=== PATIENT | female | born 1960 ===

== ENCOUNTER 2017-10-20 07:56 | Outpatient (CLI) | payer BC | END 2017-10-20 07:57 | disposition home or self-care (01) | LOC: BICMAMMO 07:56 | PROVIDERS: ATTEND Family Medicine | DX: Z12.31 Encounter for screening mammogram for malignant neoplasm of breast (principal) | CPT/HCPCS: 77063; 77067 ==

== ENCOUNTER 2018-10-23 08:12 | Outpatient (CLI) | payer BC ==
--- NOTE | 2018-10-30 13:19 | MMO ---
Bilateral MAMMO Bilat Screen [facility]. CLINICAL HISTORY: Patient is 58 years old and is seen for screening. The patient has no family history of breast cancer. The patient has no personal history of cancer. VIEWS: The views performed were: bilateral craniocaudal with tomosynthesis and bilateral mediolateral oblique with tomosynthesis. FILMS COMPARED: The present examination has been compared to prior imaging studies performed at [facility] on 09/11/2003, 06/18/2005, 08/17/2006, 10/31/2008, 11/24/2009, 05/26/2011, 05/03/2013, 07/01/2014, 09/02/2015, 09/14/2016 and 10/20/2017. MAMMOGRAM FINDINGS: There are scattered fibroglandular densities. Finding 1: There is a stable focal asymmetry seen in the right breast. Finding 2: There are benign appearing calcifications. There are no suspicious masses, calcifications or areas of architectural distortion. IMPRESSION: ALL ABOVE FINDINGS ARE BENIGN. A ROUTINE FOLLOW-UP MAMMOGRAM IN 1 YEAR IS RECOMMENDED. THE RESULTS OF THIS EXAM WERE SENT TO THE PATIENT. ACR BI-RADS Category 2 - Benign finding MAMMOGRAPHY NOTE: 1. A negative mammogram report should not delay a biopsy if a dominant of clinically suspicious mass is present. 2. Approximately 10% to 15% of breast cancers are not detected by mammography. 3. Adenosis and dense breasts may obscure an underlying neoplasm.
== END 2018-10-23 08:13 | disposition home or self-care (01) ==
LOC: BICMAMMO 08:12
PROVIDERS: ATTEND Obstetrics & Gynecology
DX: Z12.31 Encounter for screening mammogram for malignant neoplasm of breast (principal)
CPT/HCPCS: 77063; 77067